=== PATIENT | female | born 1980 | race African-American/Black ===

== ENCOUNTER 2017-12-13 20:38 | Emergency (ER) | payer MEDICAID ==
[~2017-12-13] VITALS: Ht 180.3 cm; Wt 94.0 kg
[2017-12-13] MEDS ORDERED: LIDOCAINE HCL 1% 20ML VIAL (Pyxis) INJ INFIL ONE (23:00)
[2017-12-13] MEDS ORDERED: LIDOCAINE HCL/PF 1% 10 MG/ML 5ML VIAL IJ NR (23:45)
[2017-12-14 00:50] VITALS: BP 118/76
== END 2017-12-14 00:50 | disposition home or self-care (01) ==
LOC: ER 20:38
DX: S63.286A Dislocation of proximal interphalangeal joint of right little finger, initial encounter (principal); S80.211A Abrasion, right knee, initial encounter; F12.10 Cannabis abuse, uncomplicated; Z88.6 Allergy status to analgesic agent; Z85.43 Personal history of malignant neoplasm of ovary; W18.39XA Other fall on same level, initial encounter; Y93.89 Activity, other specified; Y92.89 Other specified places as the place of occurrence of the external cause; Y99.8 Other external cause status
CPT/HCPCS: 26742; 73140; 81025; 99284; J3490; Z7610